=== PATIENT | male | born 1965 | race Hispanic/Latino ===

== ENCOUNTER → 2024-05-11 11:14 | Outpatient (REF) | payer OTHER, SELFPAY ==
[2024-05-11 12:50] LABS: Rubella Positive
[2024-05-11 13:19] LABS: Hepatitis B Surface Antibody Negative
[2024-05-13 13:35] LABS: Mumps Virus IgG Positive; Rubeola (Measles) IgG Positive; Varicella Zoster IgG (VZV) Positive
== END ==
LOC: OHS 11:14
PROVIDERS: ATTENDING PHYSICIAN Nurse Practitioner Family
DX: Z23 Encounter for immunization (principal)
CPT/HCPCS: 36415; 86480; 86706; 86735; 86762; 86765; 86787

== ENCOUNTER → 2024-05-13 10:02 | Outpatient (REF) | payer OTHER, SELFPAY | LOC: RAD 10:02 | PROVIDERS: ATTENDING PHYSICIAN Nurse Practitioner | DX: Z13.9 Encounter for screening, unspecified (principal) | CPT/HCPCS: 71046 ==